=== PATIENT | female | born 1985 | race Caucasian/White ===

== ENCOUNTER 2020-01-09 21:17 | Emergency (ER) | payer OTHER ==
[~2020-01-09] VITALS: Ht 167.6 cm; Wt 98.4 kg
[2020-01-09] MEDS ORDERED: NAPROSYN500 MG PO (23:20)
[2020-01-09] MEDS ORDERED: KEFLEX500 M1 PO (23:20)
[2020-01-09 23:50] VITALS: BP 128/86
== END 2020-01-09 23:53 | disposition home or self-care (01) ==
LOC: M.ERS 21:17
DX: I80.01 Phlebitis and thrombophlebitis of superficial vessels of right lower extremity (principal); Z88.0 Allergy status to penicillin